=== PATIENT | male | born 1950 | race Caucasian/White ===

== ENCOUNTER 2021-08-25 08:56 | Emergency (ER) | payer MEDICARE, MEDICAID ==
[~2021-08-25] VITALS: Ht 170.2 cm; Wt 90.7 kg
[2021-08-25] MEDS ORDERED: ATORVASTATIN CA40 MG PO (09:36)
[2021-08-25] MEDS ORDERED: BREO ELLIPTA 21 EACH (09:36)
[2021-08-25] MEDS ORDERED: FLUTICASONE PRO16 GM NAS (09:37)
[2021-08-25] MEDS ORDERED: PEPCID AC20 MG PO (09:37)
[2021-08-25] MEDS ORDERED: CIALIS20 MG PO (09:38)
[2021-08-25] MEDS ORDERED: TAMSULOSIN HCL0.4 MG PO (09:39)
[2021-08-25] MEDS ORDERED: VENTOLIN HFA18 GM INH (09:39)
[2021-08-25] MEDS ORDERED: DICLOFENAC POTA50 MG PO (09:39)
[2021-08-25] MEDS ORDERED: LEVOTHYROXINE75 MC1 PO (09:40)
[2021-08-25] MEDS ORDERED: HYDROCHLOROTH12.5 M1 PO (09:40)
[2021-08-25] MEDS ORDERED: BAYER CHEWABLE81 MG PO (09:40)
[2021-08-25] MEDS ORDERED: OMEPRAZOLE20 MG PO (09:41)
[2021-08-25] MEDS ORDERED: COZAAR50 MG PO (09:41)
[2021-08-25] MEDS ORDERED: PREDNISONE20 MG PO (10:05)
[2021-08-25] MEDS ORDERED: HYDROCODON-ACE1 EA10 PO (10:05)
[2021-08-25] MEDS ORDERED: FRONT WHEELED WALKER XX (10:06)
--- OUTSIDE RECORDS SUMMARY | 2021-08-25 12:22 | XMS ---
PreManage Notification: KRISHNA FERNANDEZ Security Web Site Manager Events No recent Security Events currently on file CRITERIA MET - [facility] CARE PROVIDERS There are no care providers on record at this time. Milagros has no Care Guidelines for this patient. Kamini VISIT COUNT ([address] [facility] 1 SAMANTHA Zepeda TOTAL 4 NOTE: Visits indicate total known visits. ED/C VISIT TRACKING (12 MO.) 08/25/2021 08:57 [facility] [place] TYPE: Emergency COMPLAINT: - L KNEE/LEG PAIN 06/27/2021 09:58 [facility] TYPE: Emergency DIAGNOSES: - Chronic obstructive pulmonary disease with (acute) exacerbation - Gastro-esophageal reflux disease with esophagitis, without bleeding - Other chest pain - Chest Pain - Chest pain, unspecified 10/01/2020 10:57 [facility] Lisa [facility] [place] [facility] TYPE: Emergency DIAGNOSES: - Finger Injury - Displaced fracture of middle phalanx of right little finger, initial encounter for closed fracture - Toe Pain - Displaced fracture of proximal phalanx of right great toe, initial encounter for closed fracture - Finger Pain; Toe Pain 09/02/2020 11:29 [facility] OR Prasad TYPE: Emergency DIAGNOSES: - Occlusion and stenosis of right carotid artery - Head Injury - Head Pain - Unspecified injury of head, initial encounter INPATIENT VISIT TRACKING (12 MO.) No inpatient visits to display in this time frame [email or web address]
== END 2021-08-25 10:15 | disposition home or self-care (01) ==
LOC: ED 08:56
DX: S76.912A Strain of unspecified muscles, fascia and tendons at thigh level, left thigh, initial encounter (principal); S76.012A Strain of muscle, fascia and tendon of left hip, initial encounter; Z88.1 Allergy status to other antibiotic agents; Z79.899 Other long term (current) drug therapy; Z79.51 Long term (current) use of inhaled steroids; Z79.82 Long term (current) use of aspirin; X50.1XXA Overexertion from prolonged static or awkward postures, initial encounter; W18.40XA Slipping, tripping and stumbling without falling, unspecified, initial encounter
CPT/HCPCS: 73552; 99283-25